=== PATIENT | male | born 1950 | race Caucasian/White ===

== ENCOUNTER 2016-10-17 14:53 | Day surgery (SDC) | payer MEDICARE, OTHER ==
--- NOTE | 2016-10-17 15:53 | EDM.PDOC ---
ED HPI GENERAL MEDICAL PROBLEM - General Chief Complaint: Lower Extremity Injury/Pain Stated Complaint: RIGHT HIP, VIA NORTH Time Seen by Provider: 10/17/16 15:39 Source of Information: Reports: Patient, Family, RN Notes Reviewed History Limitations: Reports: No Limitations - History of Present Illness INITIAL COMMENTS - FREE TEXT/NARRATIVE: 65-year-old gentleman presents emergency department day complaint of right hip pain he has a known history of chronic infection has had multiple dislocations in the past today he had a similar episode where he feels his hip was dislocated. The last 2 times they have been unsuccessful putting the hip back in place while in the emergency department he has had to go to the operating room for deep sedation the hip to be reduced Right Hip Pain Score (Numeric/FACES): 6 - Related Data Allergies Allergy/AdvReac Type Severity Reaction Status Date / Time escitalopram oxalate Allergy Rash Verified 10/13/15 10:01 [From Lexapro] levofloxacin [From Levaquin] Allergy Rash Verified 10/13/15 10:02 lisinopril Allergy Rash Verified 10/13/15 10:01 prednisone Allergy Hives Verified 10/13/15 10:02 sulfacetamide Allergy Rash Verified 10/13/15 10:03 thimerosal Allergy Rash Verified 10/13/15 10:03 Home Meds: Home Meds Citalopram [Citalopram HBr] 20 mg PO DAILY 09/13/14 [History] Losartan [Cozaar] 100 mg PO DAILY 09/13/14 [History] amLODIPine [Norvasc] 10 mg PO DAILY 09/13/14 [History] cycloSPORINE [Cyclosporine] 100 mg PO BID 09/13/14 [History] *Albuterol 10/17/16 [History] *Aleve 10/17/16 [History] *Fluticasone 10/17/16 [History] *Ocuvite 10/17/16 [History] Ibuprofen [IMW: Ibuprofen] 800 mg PO ASDIRECTED PRN 10/17/16 [History] Lutein/Minerals/Vit A,C & E [Ocuvite] 10/17/16 [History] Lutein/Minerals/Vit A,C & E [Ocuvite] 1 tab PO DAILY 10/17/16 [History] Lutein/Minerals/Vit A,C & E [Ocuvite] 1 tab PO DAILY 10/17/16 [History] Minocycline HCl [Minocycline HCl] 100 mg PO BID 10/17/16 [History] Tiotropium [Spiriva HandiHaler] 18 mcg IH BEDTIME 10/17/16 [History] atorvaSTATin [Lipitor] 20 mg PO BEDTIME 10/17/16 [History] oxyCODONE [oxyCODONE] 5 mg PO ASDIRECTED PRN 10/17/16 [History] Past Medical History HEENT History: Reports: Hard of Hearing, Impaired Vision Other HEENT History: MACULAR DEGENERATION BILAT EYES, L EAR CHRONIC INFECTION, L EARDRUM SURGICAL PROCEEDURE Cardiovascular History: Reports: High Cholesterol, Hypertension Other Cardiovascular History: vaso vagal episode last night Respiratory History: Reports: Bronchitis, Recurrent, COPD Other Musculoskeletal History: R HIP DISLOCATION MULTIPLE TIMES AND INFECTION WITH ANKUR DRAIN, BLEEDING AT SITE, BUT APPEARS TO STILL BE INTACT Psychiatric History: Reports: Depression Hematologic History: Reports: Blood Transfusion(s) Other Hematologic History: PURE RED CELL APLASIA - Infectious Disease History Infectious Disease History: Reports: Chicken Pox, Measles, Mumps - Past Surgical History Musculoskeletal Surgical History: Reports: Hip Replacement Social & Family History - Tobacco Use Smoking Status *Q: Current Every Day Smoker Years of Tobacco use: 40 Packs/Tins Daily: 1 Used Tobacco, but Quit: No - Caffeine Use Caffeine Use: Reports: Coffee - Alcohol Use Days Per Week of Alcohol Use: 7 Number of Drinks Per Day: 6 Total Drinks Per Week: 42 - Recreational Drug Use Recreational Drug Use: No Review of Systems - Review of Systems Review Of Systems: See Below Constitutional: Reports: No Symptoms Musculoskeletal: Reports: Joint Pain (Hip pain) ED EXAM, GENERAL - Physical Exam Exam: See Below Free Text/Narrative:: Examination the right hip there is a ANKUR drain presents there is bloody discharge around the drain he is tender with any movement to the right hip pedal pulses 2+ Exam Limited By: No Limitations General Appearance: Alert, WD/WN, No Apparent Distress Course - Vital Signs Last Recorded V/S: Last Vital Signs Temp 98.2 F 10/17/16 14:59 Pulse 93 10/17/16 14:59 Resp 15 10/17/16 14:59 BP 129/80 10/17/16 14:59 Pulse Ox 95 10/17/16 14:59 - Orders/Labs/Meds Orders: Active Orders 24 hr Category Date Time Status Hip Min 1V Rt [CR] Routine Exams 10/17/16 16:42 Taken Hip Min 1V Rt [CR] Stat Exams 10/17/16 15:50 Taken Meds: Medications Discontinued Medications Generic Name Dose Route Start Last Admin Trade Name Thiago PRN Reason Stop Dose Admin Fentanyl Confirm 10/17/16 15:57 Sublimaze Administered 10/17/16 15:58 Dose 100 mcg .ROUTE .STK-MED ONE Fentanyl 50 mcg 10/17/16 16:23 10/17/16 17:25 Sublimaze IVPUSH 10/17/16 16:24 Not Given ONETIME ONE Propofol Confirm 10/17/16 15:57 Diprivan 20 Ml Administered 10/17/16 15:58 Dose 200 mg .ROUTE .STK-MED ONE Succinylcholine Chloride Confirm 10/17/16 16:55 Succinylcholine In Ns Pf Administered 10/17/16 16:56 Dose 200 mg .ROUTE .STK-MED ONE Departure - Departure Time of Disposition: 17:40 Disposition: Home, Self-Care 01 Condition: Fair Clinical Impression: Hip dislocation, right Qualifiers: Encounter type: initial encounter Qualified Code(s): S73.004A - Unspecified dislocation of right hip, initial encounter - Discharge Information - My Orders Last 24 Hours: My Active Orders 10/17/16 15:50 Hip Min 1V Rt [CR] Stat - Assessment/Plan Last 24 Hours: My Active Orders 10/17/16 15:50 Hip Min 1V Rt [CR] Stat Plan: Assessment Acuity = acute Site and laterality = right hip dislocation status post reduction complicated patient with chronic joint infection Etiology = multifactorial related to joint replacement Manifestations = none Location of injury = Home Lab values = initial x-ray shows an anterior dislocation of the right hip post reduction films show hip with proper alignment no fracture is appreciated official read radiology is pending Plan I consulted Dr. Rosa from orthopedics who kindly presented to the emergency department with anesthesia they were able to do a reduction of his hip he is pain-free he is able to ambulate at this time, plan is to discharge home follow- up with his orthopedic provider at home Patient was in agreement with the plan all questions were answered, they were instructed to return to the emergency department or call for worsening symptoms. This note was dictated using [employer] voice recognition software please call with any questions.
[2016-10-17] MEDS ORDERED: Propofol 200 MG/20 ML SDV ONE (15:57)
[2016-10-17] MEDS ORDERED: fentaNYL 100 MCG/2 ML SDV ONE (15:57)
[2016-10-17] MEDS ORDERED: fentaNYL 100 MCG/2 ML SDV IVPUSH ONE (16:23)
[2016-10-17] MEDS ORDERED: Succinylcholine/Normal Saline 200 MG/10 ML Syringe ONE (16:55)
[2016-10-17 18:04] VITALS: BP 140/65
[2016-10-17] MEDS ORDERED: Ketamine 500 MG/5 ML MDV ONE (23:58)
--- NOTE | 2016-10-18 09:14 | CR ---
Hip Min 1V Rt INDICATION: dislocation FINDINGS: Superior dislocation of the right total hip arthroplasty. Pigtail catheter projected over the right hip. Mild heterotopic ossification adjacent to the right hip.
--- NOTE | 2016-10-18 09:15 | CR ---
Hip Min 1V Rt INDICATION: post reduction FINDINGS: Relocation of the right total hip arthroplasty since exam performed earlier today. Pigtail catheter projected over the soft tissues of the right hip. Heterotopic ossification.
--- NOTE | 2016-10-18 09:55 | PCM.CONS ---
H&P History of Present Illness - General Source of Information: Patient, Family History Limitations: Reports: No Limitations - History of Present Illness Onset of Symptoms: Reports: Today, Sudden Quality: Reports: Ache, Burning, Dull, Pressure, Throbbing Severity: Severe Improves with: Reports: None Worsens with: Reports: Movement Right Hip Pain Score (Numeric/FACES): 6 - Related Data Allergies/Adverse Reactions: Allergies Allergy/AdvReac Type Severity Reaction Status Date / Time escitalopram oxalate Allergy Rash Verified 10/13/15 10:01 [From Lexapro] levofloxacin [From Levaquin] Allergy Rash Verified 10/13/15 10:02 lisinopril Allergy Rash Verified 10/13/15 10:01 prednisone Allergy Hives Verified 10/13/15 10:02 sulfacetamide Allergy Rash Verified 10/13/15 10:03 thimerosal Allergy Rash Verified 10/13/15 10:03 Home Medications: Home Meds Citalopram [Citalopram HBr] 20 mg PO DAILY 09/13/14 [History] Losartan [Cozaar] 100 mg PO DAILY 09/13/14 [History] amLODIPine [Norvasc] 10 mg PO DAILY 09/13/14 [History] cycloSPORINE [Cyclosporine] 100 mg PO BID 09/13/14 [History] *Albuterol 10/17/16 [History] *Aleve 10/17/16 [History] *Fluticasone 10/17/16 [History] *Ocuvite 10/17/16 [History] Ibuprofen [IMW: Ibuprofen] 800 mg PO ASDIRECTED PRN 10/17/16 [History] Lutein/Minerals/Vit A,C & E [Ocuvite] 10/17/16 [History] Lutein/Minerals/Vit A,C & E [Ocuvite] 1 tab PO DAILY 10/17/16 [History] Lutein/Minerals/Vit A,C & E [Ocuvite] 1 tab PO DAILY 10/17/16 [History] Minocycline HCl [Minocycline HCl] 100 mg PO BID 10/17/16 [History] Tiotropium [Spiriva HandiHaler] 18 mcg IH BEDTIME 10/17/16 [History] atorvaSTATin [Lipitor] 20 mg PO BEDTIME 10/17/16 [History] oxyCODONE [oxyCODONE] 5 mg PO ASDIRECTED PRN 10/17/16 [History] Past Medical History HEENT History: Reports: Hard of Hearing, Impaired Vision Other HEENT History: MACULAR DEGENERATION BILAT EYES, L EAR CHRONIC INFECTION, L EARDRUM SURGICAL PROCEEDURE Cardiovascular History: Reports: High Cholesterol, Hypertension Other Cardiovascular History: vaso vagal episode last night Respiratory History: Reports: Bronchitis, Recurrent, COPD Other Musculoskeletal History: R HIP DISLOCATION MULTIPLE TIMES AND INFECTION WITH ANKUR DRAIN, BLEEDING AT SITE, BUT APPEARS TO STILL BE INTACT Psychiatric History: Reports: Depression Hematologic History: Reports: Blood Transfusion(s) Other Hematologic History: PURE RED CELL APLASIA - Infectious Disease History Infectious Disease History: Reports: Chicken Pox, Measles, Mumps - Past Surgical History Musculoskeletal Surgical History: Reports: Hip Replacement Social & Family History - Tobacco Use Smoking Status *Q: Current Every Day Smoker Years of Tobacco use: 40 Packs/Tins Daily: 1 Used Tobacco, but Quit: No - Caffeine Use Caffeine Use: Reports: Coffee - Alcohol Use Days Per Week of Alcohol Use: 7 Number of Drinks Per Day: 6 Total Drinks Per Week: 42 - Recreational Drug Use Recreational Drug Use: No H&P Review of Systems - Review of Systems: Review Of Systems: See Below General: Reports: No Symptoms HEENT: Reports: Other Pulmonary: Reports: No Symptoms Cardiovascular: Reports: No Symptoms Gastrointestinal: Reports: No Symptoms Genitourinary: Reports: No Symptoms Musculoskeletal: Reports: Leg Pain, Joint Pain, Joint Swelling, Muscle Pain Skin: Reports: Other Exam - Exam Exam: See Below - Vital Signs Vital Signs: Last Vital Signs Temp 98.6 F 10/17/16 18:03 Pulse 99 10/17/16 18:03 Resp 15 10/17/16 18:03 BP 140/65 10/17/16 18:03 Pulse Ox 94 L 10/17/16 18:03 Weight: 220 lb - Exam General: Alert, Oriented HEENT: PERRLA, Conjunctiva Clear Neck: Supple, Trachea Midline Lungs: Clear to Auscultation Cardiovascular: Regular Rate, Regular Rhythm Back Exam: Normal Inspection Extremities: Normal Inspection Skin: Warm, Dry, Intact Neurological: Cranial Nerves Intact Neuro Extensive - Mental Status: Alert, Oriented x3 Psychiatric: Alert, Normal Affect, Normal Mood Physical Exam Comments:: I the pleasure visiting with the patient is today in emergency department. I was called by Dr. Estrella because the gentleman had a right recurrent hip dislocation. He also has a history of being treated at the [facility] for infection of the joint as well. He has a history of being relocated with paralytics in the past. He is having right lower extremity pain. This happened today. They live on [address]. LOWER EXTREMITY Musculoskeletal Physical Examination Constitutional: Vital signs including height and weight were reviewed and documented on the patient's chart. General appearance demonstrates normal development and body habitus. the patient is in moderate distress. HEENT: Normocephalic, atraumatic.the patient is very hard of hearing and uses an electronic device to communicate with me. Neurological: The patient is alert and oriented to person, place, and time. Mood and affect are appropriate. Intact sensation is noted. Right lower extremity: There is a drain with serosanguineous drainage out of the right hip. The patient's states that it is usually not bloody but it is today because he fell after dislocating. There is some purulent fluid within the ANKUR drain. The right lower extremity is slightly shortened and externally rotated. He has good sensation of the lower right lower extremity. Range of motion was not tested secondary to the dislocation. Left lower extremity: Inspection/palpation: Normal symmetry and appearance without tenderness. Range of motion: Full range of motion without pain. Stability: Stable through range of motion. Strength: Normal muscle strength and tone. Skin: Normal skin tone without rashes or lesions. imaging: Previous films as well as the current film today were visualized incorporated into the decision-making process. This shows that the cup is anteverted. He has an extended femoral neck stem. It appears to be an old prosthesis based on the size of the prosthetic femoral head. The femoral implant does not fill the canal and loosening cannot be ruled out. plan: We went ahead and with the aid of anesthesia tried a reduction with propofol which was unsuccessful. We then used a paralytic and on the second try were able to reduce it. This is confirmed on post reduction films. I've advised the patient and his that this needs to get taken care of sooner than later. They will be communicating with the [facility] in the [facility]. Consult PN Assessment/Plan Procedures: Procedures EMERGENCY DEPT VISIT (10/13/15) EMERGENCY DEPT VISIT (09/13/14) THER/PROPH/DIAG INJ IV PUSH (10/13/15) TREAT HIP DISLOCATION (09/13/14) X-RAY EXAM HIP UNI 2-3 VIEWS (10/13/15) X-RAY EXAM OF HIP (09/13/14) Problem List Initiated/Reviewed/Updated: Yes Requesting Provider: Tim Kimball MD Date Consult Requested: 10/17/16 Patient History Reviewed: Yes Notified Requestor: Yes
--- NOTE | 2016-10-18 09:59 | PCM.PRNOTE ---
- Free Text/Narrative Note: procedure note The patient was seen in the emergency department. He is not having anterior hip dislocation. Risks and benefits of the procedure explained to the patient and his . Informed consent was obtained. Conscious sedation was provided by the anesthesia staff. Dr. seay assisted with the reduction. The patient was unable to be relocated with propofol sedation. We then used a paralytic. The first attempt was unsuccessful. This is confirmed on imaging. We then did another reduction which was successful. I was able to range the hip. There was a slight jain length. The leg was not is dextrorotated. Postreduction imaging confirmed reduction. The patient was then monitored by the anesthesia staff. I've advised the patient 's that this needs to be started taking care of sooner than later. I've advised her that he will most likely need a temporary spacer as well as a PICC line. He does have other health issues as well. The patient's stated she would contact the [facility] tomorrow.
== END 2016-10-17 18:14 ==
LOC: JP.ED 14:53 → JP.SDS 16:06
PROVIDERS: ATTEND Orthopaedic Surgery
DX: M24.451 Recurrent dislocation, right hip (principal); I10 Essential (primary) hypertension; E78.00 Pure hypercholesterolemia, unspecified; F32.9 Major depressive disorder, single episode, unspecified; F17.210 Nicotine dependence, cigarettes, uncomplicated; Z88.1 Allergy status to other antibiotic agents; Z88.2 Allergy status to sulfonamides; Z88.8 Allergy status to other drugs, medicaments and biological substances; Z96.649 Presence of unspecified artificial hip joint; Z79.899 Other long term (current) drug therapy; X58.XXXA Exposure to other specified factors, initial encounter
CPT/HCPCS: 27266; 73501; 96374; 99284; J2704; J3010

== ENCOUNTER 2022-01-11 00:16 | Emergency (ER) | payer MEDICARE, OTHER ==
[2022-01-11] MEDS ORDERED: Sodium Chloride 0.9% 1,000 ML IV ONE (01:10)
[2022-01-11] MEDS ORDERED: Propofol 200 MG/20 ML SDV ONE ×2 (01:30→02:00)
== END 2022-01-11 02:59 | disposition home or self-care (01) ==
LOC: JP.ED 00:16
DX: T84.020A Dislocation of internal right hip prosthesis, initial encounter (principal); J44.9 Chronic obstructive pulmonary disease, unspecified; W06.XXXA Fall from bed, initial encounter
CPT/HCPCS: 27265; 73502; 73503; 99152; 99283; J2704; J7030

== ENCOUNTER 2022-10-31 16:20 | Emergency (ER) | payer MEDICARE ==
[2022-10-31] MEDS ORDERED: Ondansetron 4 MG/2 ML SDV IVPUSH ONE (16:35)
[2022-10-31] MEDS ORDERED: HYDROmorphone 0.5 MG/0.5 ML Syringe IVPUSH ONE (16:35)
[2022-10-31] MEDS ORDERED: Sodium Chloride 0.9% 1,000 ML IV SCH (16:45)
[2022-10-31 16:49] LABS: HEMATOCRIT 28.4 % (38.4-49.7); HEMOGLOBIN 9.4 g/dL (12.9-16.9); MEAN CORPUSCULAR HEMOGLOBIN 31.3 pg (31.6-35.5); MEAN CORPUSCULAR HGB CONC 33.1 g/dL (31.6-35.5); MEAN CORPUSCULAR VOLUME 94.7 fL (81.4-99.0); WHITE BLOOD CELL COUNT,WBC 7.8 K/uL (3.2-11.0)
[2022-10-31 17:20] LABS: A/G RATIO 0.7 (1.2-2.2); ALANINE AMINOTRANSFERASE,ALT 16 U/L (12-78); ALBUMIN 2.8 g/dL (3.4-5.0); ALKALINE PHOSPHATASE 83 U/L (46-116); ASPARTATE AMNIOTRANSFERASE,AST 24 U/L (15-37); BILIRUBIN TOTAL 0.5 mg/dL (0.2-1.0); BLOOD UREA NITROGEN,BUN 31 mg/dL (7-18); CALCIUM 8.8 mg/dL (8.5-10.1); CARBON DIOXIDE,CO2 20 mmol/L (21-32); CHLORIDE,CL 107 mmol/L (100-108); CREATININE 1.2 mg/dL (0.8-1.3); EST CRCL DRUG DOSING (CG) 58.39 mL/min; ESTIMATED GFR 64 mL/min (>60); GLUCOSE RANDOM 93 mg/dL (74-106); POTASSIUM,K 4.4 mmol/L (3.6-5.2); PRO B-TYPE NATRIUR PEPT,BNPPRO 459 pg/mL (5-125); PROTEIN TOTAL,TP 6.6 g/dL (6.4-8.2); SODIUM,NA 139 mmol/L (140-148)
[2022-10-31 17:23] LABS: ANION GAP 16.4 mmol/L (5.0-14.0)
[2022-10-31 17:38] VITALS: BP 116/56; PULSE 86
[2022-10-31] MEDS ORDERED: Propofol 200 MG/20 ML SDV ONE (18:46)
== END 2022-10-31 19:59 | disposition home or self-care (01) ==
LOC: JP.ED 16:20
DX: T84.020A Dislocation of internal right hip prosthesis, initial encounter (principal); E78.00 Pure hypercholesterolemia, unspecified; I10 Essential (primary) hypertension; Z79.899 Other long term (current) drug therapy; Z88.8 Allergy status to other drugs, medicaments and biological substances; Z88.2 Allergy status to sulfonamides; W18.30XA Fall on same level, unspecified, initial encounter
CPT/HCPCS: 27265; 36415; 73501; 73502; 80053; 80307; 82550; 83605; 83880; 85027; 96374; 96375; 99284; J1170; J2405; J2704; J7030